=== PATIENT | female | born 1955 | race Caucasian/White ===

== ENCOUNTER 2017-12-24 20:18 | Emergency (ER) | payer OTHER ==
[~2017-12-24] VITALS: Ht 162.6 cm; Wt 80.3 kg
[2017-12-24 20:29] VITALS: Ht 162.6 cm; Wt 80.3 kg
[2017-12-24 22:35] VITALS: BP 106/64
== END 2017-12-24 22:35 | disposition home or self-care (01) ==
LOC: ED 20:18
DX: J06.9 Acute upper respiratory infection, unspecified (principal)
CPT/HCPCS: 87804